=== PATIENT | female | born 1930 | race Caucasian/White ===

== ENCOUNTER 2016-12-14 21:27 | Inpatient (IN) | payer MEDICARE ==
--- NOTE | ~2016-12-14 | DS ---
Discharge Summary [facility] [address] [place]. [address] NAME: MARK CAMP : 28 STATUS : DIS IN PAT#: [id number] AGE: 86 ADM/REG DATE : 12/15/16 MR#: [id number] REPORT SERV DATE: 12/20/16 DICTATED BY: MANJULA KUMARI DATE: 12/19/16 REPORT STATUS : Draft TRANSCRIBED BY: MODL DATE: 12/19/16 ADMISSION DATE: 12/15/2016 DISCHARGE DATE: 12/19/2016 DATE OF ADMISSION: 12/14/2016 (before midnight). DISCHARGE DIAGNOSES: 1. Right lower lobe pneumonia, probably viral. 2. Acute hypoxic respiratory failure. 3. Bronchospasm. 4. Delirium atop of chronic Alzheimer's dementia. 5. Chronic kidney disease 3, improved. 6. Hypothyroidism. 7. Deep vein thrombosis on long-term anticoagulation. 8. Atypical pain syndrome. DISCHARGE PLAN: She was transferred to [facility] for rehab. DISCHARGE MEDICATIONS: Included continuing gabapentin 300 mg 3 times a day, Synthroid 75 mcg daily, Namenda 10 mg b.i.d., Xarelto 20 mg daily, Florastor capsules twice daily, albuterol nebulizer, Colace p.r.n., milk of magnesia, calcium vitamins and vitamin D, Robitussin AC p.r.n. She will see me in the office in followup. PATIENT SUMMARY: An 86-year-old white female with dementia who had been hospitalized in November with hypoxic respiratory failure from left lower lobe pneumonia. She had made great progress since that illness and had returned to her Assisted Living Facility. The 24 hours prior to admission, she developed increasing confusion, shortness of breath, coughing and fever up to 100.5. The rapid clinical decline and hypoxia precipitated a trip to the emergency room for evaluation. Her had a similar illness, and there had been several other residents with fevers. LABORATORY DATA: ER admission evaluation included blood gas 7.054 on room air. Sodium 139, potassium 3.7, BUN 19, creatinine 1.37, lactate was normal. Troponin was normal. BNP was normal. Liver functions normal. White count was 8800, hemoglobin 15.7, hematocrit 46.9. At discharge, white count was 7200, hemoglobin 40.3, sodium 144, potassium 3.8, BUN 28, creatinine 1.08. Flu swab was negative. Blood cultures were sterile. Chest x-ray portable suggested some basilar atelectasis. Followup chest x-ray, the ensuing days, showed some improvement in the right lower lobe. HOSPITAL COURSE: The patient was admitted with recurrent respiratory symptoms, fever, and significant clinical deterioration in her cognitive function. It was the admitting physician's impression based on the clinical examination that she had a right lower lobe pneumonia. She was cultured, given bronchodilators and started on Levaquin adjusted to her Discharge Summary [address] [address] NAME: MARK CAMP : 28 STATUS : DIS IN PAT#: [id number] AGE: 86 ADM/REG DATE : 12/15/16 MR#: [id number] REPORT SERV DATE: 12/20/16 DICTATED BY: MANJULA KUMARI DATE: 12/19/16 REPORT STATUS : Draft TRANSCRIBED BY: KATARINA DATE: 12/19/16 renal function. As by previous admission, she developed some bronchospasm and was given steroids and bronchodilators. She has no history of smoking, is not known to have COPD. Fever resolved, and oxygenation improved. Her clinical recovery was similar to prior expectations and experience. She was evaluated for the possibility of aspiration and had a swallowing study which showed direct aspiration but some slow transient period. It was felt that some simple aspiration precautions would be beneficial. Her delirium cleared, and she returned to her baseline dementia. Her renal function improved. She was more mobile and functioning but given her previous circumstances, it was felt that another short stay at [facility] would be appropriate to get her back to speed and return her to her assisted living facility. She was discharged for outpatient followup. BROOKE/KATARINA Manjula Kumari M.D. / [id number] CC: Manjula Kumari M.D.
[2016-12-14 21:27] LABS: BASOPHILS 0.3 %; BASOPHILS ABSOLUTE 0.03 10/3/uL (0.0-0.16); EOSINOPHILS 2.3 %; ER CBC TAT 0 Hrs 09 Mins; HEMOGLOBIN 15.7 g/dL (12.0-16.0); IMMATURE GRANULOCYTES 0.7 %; IMMATURE GRANULOCYTES ABSOLUTE 0.06 10/3/uL (0.0-0.11); LYMPHOCYTES 45.5 %; LYMPHOCYTES ABSOLUTE 3.99 10/3/uL (0.67-4.30); MEAN CORPUS HGB CONC 33.5 g/dL (32.0-36.0); MEAN CORPUSCULAR HEMOGLOB 31.2 pg (26.0-34.0); MEAN CORPUSCULAR VOLUME 93.2 fL (80-100); MEAN PLATELET VOLUME 11.1 fL (9.2-13.0); MONOCYTES 9.4 %; MONOCYTES ABSOLUTE 0.82 10/3/uL (0.21-1.20); NEUTROPHILS 41.8 %; NEUTROPHILS ABSOLUTE 3.67 10/3/uL (2.02-8.40); PLATELET COUNT 166 10/3/uL (150-400); RBC DISTRIBUTION WIDTH 16.4 % (12.0-16.0); RED CELL COUNT 5.03 10/6/uL (4.0-5.6); WHITE BLOOD CELLS 8.8 10/3/uL (4.5-10.5)
[~2016-12-14 21:27] MED LIST: CALTRAT600 PO; CENTRUM PO; LEVAQUIN750 MG PO; NAMENXR28 PO; SYN075 PO; T PO; VITAMIN D1000 UNI1 PO; XARELTO20 MG PO
[2016-12-14 21:31] LABS: HEMATOCRIT 46.9 % (36.0-48.0); MANUAL DIFF NO %
[2016-12-14 21:41] LABS: CALCIUM, SERUM 9.4 MG/DL (8.5-10.4); CHLORIDE, SERUM 102 MMOL/L (96-112); CO2 (CARBON DIOXIDE) 26 MMOL/L (24-34); CREATININE 1.37 MG/DL (0.55-1.02); GFR AFRICAN AMERICAN 40 ML/MIN (>=60); GFR NON AFRICAN AMERICAN 35 ML/MIN (>=60); GLUCOSE, SERUM 121 MG/DL (60-99); POTASSIUM, SERUM 3.7 MMOL/L (3.5-5.3); SGOT(AST) 18 U/L (5-40); SGPT(ALT) 35 U/L (5-65); SODIUM, SERUM 139 MMOL/L (135-148); TOTAL BILIRUBIN 0.5 MG/DL (0-1.2); TOTAL PROTEIN 8.2 G/DL (6.0-8.5); TROPONIN I <0.02 NG/ML (<0.05)
[2016-12-14 21:45] LABS: A/G RATIO 0.9 (0.7-1.9); ALBUMIN 3.8 G/DL (3.5-5.0); ALKALINE PHOSPHATASE 103 U/L (45-117); BUN (BLOOD UREA NITROGEN) 19 MG/DL (6-23); GLOBULIN 4.4 G/DL (2.5-4.1)
[2016-12-14 22:53] LABS: BE (BASE EXCESS) -1.5 MEQ/L (0 +/- 2.5); CARBOXYHEMOGLOBIN 1.3 % (0-3); HCO3 (ACTUAL BICARBONATE) 20.2 MEQ/L (23-27); HEMOBLOGIN CONTENT 14.8 G/DL (12-16); INSTRUMENT SERIAL # 8087; METHEMOGLOBIN 0.2 % (0-3); O2 CONTENT 18.4 VOL% (18-24); OPERATOR ID 17537; PCO2 (CO2 TENSION) 27 MMHG (35-45); PO2 (O2 TENSION) 54 MMHG (79-93); SAMPLE Arterial; pH 7.49 (7.37-7.43)
[2016-12-14] MEDS ORDERED: NEUR300 PO (23:49)
[2016-12-14] MEDS ORDERED: DSS PO (23:49)
[2016-12-14] MEDS ORDERED: MULTIVIT/MIN PO (23:50)
[2016-12-14] MEDS ORDERED: NAMENDA10 MG PO (23:50)
[2016-12-14] MEDS ORDERED: VITAMIN D31000 UNIT PO (23:50)
[2016-12-14] MEDS ORDERED: CALTRAT600 PO (23:50)
[2016-12-14] MEDS ORDERED: SYN075 PO (23:50)
[2016-12-14] MEDS ORDERED: ULTRAM50 PO (23:51)
[2016-12-14] MEDS ORDERED: XARELTO20 MG PO (23:51)
[2016-12-14] MEDS ORDERED: VENTOLIN HFA INH (23:51)
[2016-12-14] MEDS ORDERED: T PO (23:51)
[2016-12-14 23:59] LABS: INFLUENZA A SCREEN NEGATIVE (NEGATIVE); INFLUENZA B SCREEN NEGATIVE (NEGATIVE)
[2016-12-15 03:41] LABS: ASCORBIC ACID (UR NOT ORDER) 40 (NEG); BILIRUBIN, URINE NEGATIVE (NEG); KETONE, URINE NEGATIVE (NEG); LEUKOCYTE ESTERASE(NOT OR NEG (NEG); WBC (NOT ORDERED) (RFLEX) 1 (0-5)
[2016-12-15 08:09] LABS: HEMOGLOBIN 13.5 g/dL (12.0-16.0); MEAN CORPUSCULAR VOLUME 93.8 fL (80-100); MEAN PLATELET VOLUME 10.7 fL (9.2-13.0); PLATELET COUNT 154 10/3/uL (150-400); RBC DISTRIBUTION WIDTH 16.4 % (12.0-16.0); RED CELL COUNT 4.36 10/6/uL (4.0-5.6)
[2016-12-15 08:14] LABS: HEMATOCRIT 40.9 % (36.0-48.0); WHITE BLOOD CELLS 4.1 10/3/uL (4.5-10.5)
[2016-12-15 08:15] LABS: MANUAL DIFF YES %
[2016-12-15 08:24] LABS: BUN (BLOOD UREA NITROGEN) 18 MG/DL (6-23); CALCIUM, SERUM 8.6 MG/DL (8.5-10.4); CHLORIDE, SERUM 104 MMOL/L (96-112); CO2 (CARBON DIOXIDE) 23 MMOL/L (24-34); GFR AFRICAN AMERICAN 39 ML/MIN (>=60); GFR NON AFRICAN AMERICAN 34 ML/MIN (>=60); GLUCOSE, SERUM 144 MG/DL (60-99); POTASSIUM, SERUM 3.9 MMOL/L (3.5-5.3); SODIUM, SERUM 140 MMOL/L (135-148)
[2016-12-15 08:44] LABS: PROCALCITONIN < 0.05 ng/mL (<0.5)
[2016-12-15 08:58] LABS: BAND NEUTROPHILS 17 %; BASOPHILS 1 %; BASOPHILS ABSOLUTE (CALC) 0.04 10/3/uL (0.0-0.16); IMMATURE GRANS ABSOLUTE (CALC) 0.04 10/3/uL (0.0-0.11); LYMPHOCYTES 14 %; LYMPHOCYTES ABSOLUTE (CALC) 0.57 10/3/uL (0.67-4.30); METAMYELOCYTES 1 %; MONOCYTES 12 %; MONOCYTES ABSOLUTE (CALC) 0.49 10/3/uL (0.21-1.20); NEUTROPHILS ABSOLUTE (CALC) 2.95 10/3/uL (2.02-8.40); PLATELET ESTIMATE ADQ (ADEQUATE); SEGMENTED NEUTROPHIL (0) 55 %; TOTAL NUCLEATED CELLS 100
[2016-12-15 08:59] LABS: RBC MORPHOLOGY NORM (NORMAL)
[2016-12-16 05:55] LABS: CHLORIDE, SERUM 107 MMOL/L (96-112); CO2 (CARBON DIOXIDE) 23 MMOL/L (24-34); CREATININE 1.25 MG/DL (0.55-1.02); GFR AFRICAN AMERICAN 45 ML/MIN (>=60); GFR NON AFRICAN AMERICAN 39 ML/MIN (>=60); SODIUM, SERUM 139 MMOL/L (135-148)
[2016-12-16 05:59] LABS: BUN (BLOOD UREA NITROGEN) 12 MG/DL (6-23); GLUCOSE, SERUM 177 MG/DL (60-99); POTASSIUM, SERUM 4.3 MMOL/L (3.5-5.3)
[2016-12-16 06:00] LABS: HEMATOCRIT 40.1 % (36.0-48.0); HEMOGLOBIN 13.8 g/dL (12.0-16.0); MEAN CORPUS HGB CONC 34.4 g/dL (32.0-36.0); MEAN CORPUSCULAR HEMOGLOB 32.2 pg (26.0-34.0); MEAN CORPUSCULAR VOLUME 93.5 fL (80-100); MEAN PLATELET VOLUME 11.1 fL (9.2-13.0); PLATELET COUNT 197 10/3/uL (150-400); RBC DISTRIBUTION WIDTH 16.9 % (12.0-16.0); RED CELL COUNT 4.29 10/6/uL (4.0-5.6); WHITE BLOOD CELLS 3.1 10/3/uL (4.5-10.5)
[2016-12-16 06:02] LABS: MANUAL DIFF YES %
[2016-12-16 07:33] LABS: ANISOCYTOSIS 1+ (5-10/OIF) (0-5/OIF); BAND NEUTROPHILS 18 %; EOSINOPHILS 2 %; EOSINOPHILS ABSOLUTE (CALC) 0.06 10/3/uL (0.0-0.53); IMMATURE GRANS ABSOLUTE (CALC) 0.06 10/3/uL (0.0-0.11); LYMPHOCYTES 27 %; LYMPHOCYTES ABSOLUTE (CALC) 0.84 10/3/uL (0.67-4.30); METAMYELOCYTES 2 %; MONOCYTES 15 %; MONOCYTES ABSOLUTE (CALC) 0.47 10/3/uL (0.21-1.20); NEUTROPHILS ABSOLUTE (CALC) 1.67 10/3/uL (2.02-8.40); PLATELET ESTIMATE ADQ (ADEQUATE); SEGMENTED NEUTROPHIL (0) 36 %; TOTAL NUCLEATED CELLS 100
[2016-12-17 04:34] LABS: BASOPHILS 0 %; EOSINOPHILS 0 %; HEMOGLOBIN 13.3 g/dL (12.0-16.0); IMMATURE GRANULOCYTES 0.2 %; IMMATURE GRANULOCYTES ABSOLUTE 0.01 10/3/uL (0.0-0.11); LYMPHOCYTES 10.2 %; LYMPHOCYTES ABSOLUTE 0.47 10/3/uL (0.67-4.30); MANUAL DIFF NO %; MEAN CORPUS HGB CONC 32.4 g/dL (32.0-36.0); MEAN CORPUSCULAR HEMOGLOB 30.7 pg (26.0-34.0); MEAN CORPUSCULAR VOLUME 94.7 fL (80-100); MEAN PLATELET VOLUME 10.6 fL (9.2-13.0); MONOCYTES 1.7 %; MONOCYTES ABSOLUTE 0.08 10/3/uL (0.21-1.20); NEUTROPHILS 87.9 %; NEUTROPHILS ABSOLUTE 4.07 10/3/uL (2.02-8.40); PLATELET COUNT 156 10/3/uL (150-400); RBC DISTRIBUTION WIDTH 15.9 % (12.0-16.0); RED CELL COUNT 4.33 10/6/uL (4.0-5.6); WHITE BLOOD CELLS 4.6 10/3/uL (4.5-10.5)
[2016-12-17 04:46] LABS: BUN (BLOOD UREA NITROGEN) 14 MG/DL (6-23); CALCIUM, SERUM 8.2 MG/DL (8.5-10.4); CHLORIDE, SERUM 106 MMOL/L (96-112); CO2 (CARBON DIOXIDE) 23 MMOL/L (24-34); CREATININE 1.22 MG/DL (0.55-1.02); GFR AFRICAN AMERICAN 46 ML/MIN (>=60); GFR NON AFRICAN AMERICAN 40 ML/MIN (>=60); GLUCOSE, SERUM 188 MG/DL (60-99); POTASSIUM, SERUM 4.2 MMOL/L (3.5-5.3); SODIUM, SERUM 142 MMOL/L (135-148)
[2016-12-19 06:51] LABS: BUN (BLOOD UREA NITROGEN) 28 MG/DL (6-23); CALCIUM, SERUM 8.5 MG/DL (8.5-10.4); CHLORIDE, SERUM 108 MMOL/L (96-112); CO2 (CARBON DIOXIDE) 25 MMOL/L (24-34); CREATININE 1.08 MG/DL (0.55-1.02); GFR AFRICAN AMERICAN 53 ML/MIN (>=60); GFR NON AFRICAN AMERICAN 46 ML/MIN (>=60); GLUCOSE, SERUM 95 MG/DL (60-99); POTASSIUM, SERUM 3.8 MMOL/L (3.5-5.3); SODIUM, SERUM 144 MMOL/L (135-148)
[2016-12-19 06:54] LABS: HEMATOCRIT 40.3 % (36.0-48.0); HEMOGLOBIN 13.3 g/dL (12.0-16.0); MEAN CORPUSCULAR HEMOGLOB 31.1 pg (26.0-34.0); MEAN CORPUSCULAR VOLUME 94.2 fL (80-100); MEAN PLATELET VOLUME 11.3 fL (9.2-13.0); PLATELET COUNT 135 10/3/uL (150-400); RBC DISTRIBUTION WIDTH 16.5 % (12.0-16.0); RED CELL COUNT 4.28 10/6/uL (4.0-5.6)
[2016-12-19 06:55] LABS: MANUAL DIFF YES %; WHITE BLOOD CELLS 7.2 10/3/uL (4.5-10.5)
[2016-12-19 07:17] LABS: LYMPHOCYTES 18 %; MONOCYTES 3 %; MONOCYTES ABSOLUTE (CALC) 0.22 10/3/uL (0.21-1.20); NEUTROPHILS ABSOLUTE (CALC) 5.69 10/3/uL (2.02-8.40); PLATELET ESTIMATE SLT DEC (ADEQUATE); RBC MORPHOLOGY NORM (NORMAL); SEGMENTED NEUTROPHIL (0) 79 %; TOTAL NUCLEATED CELLS 100
== END 2016-12-19 11:37 | DRG 193 ==
LOC: ER 21:27 → 7NO 23:50
PROVIDERS: Emergency Medicine; Internal Medicine
DX: J12.9 Viral pneumonia, unspecified (principal); J96.01 Acute respiratory failure with hypoxia; F05 Delirium due to known physiological condition; G30.9 Alzheimer's disease, unspecified; F02.80 Dementia in other diseases classified elsewhere, unspecified severity, without behavioral disturbance, psychotic disturbance, mood disturbance, and anxiety; N18.3 Chronic kidney disease, stage 3 (moderate); I12.9 Hypertensive chronic kidney disease with stage 1 through stage 4 chronic kidney disease, or unspecified chronic kidney disease; E03.9 Hypothyroidism, unspecified; Z86.718 Personal history of other venous thrombosis and embolism; Z79.01 Long term (current) use of anticoagulants; J98.01 Acute bronchospasm; G89.4 Chronic pain syndrome
CPT/HCPCS: 36600; 71010; 71020; 74230; 80048; 80053; 81001; 82805; 83605; 83735; 83880; 84145; 84484; 85025; 87040; 87449; 87804; 92610-GN; 92611-GN; 93005; 94640; 97110-GP; 97116-GP; 97162-GP; 99285; A9270-GY; G8978-CK-GP; G8979-CJ-GP; G8996-CI-GN; G8996-CJ-GN; G8997-CI-GN; G8997-CJ-GN; G8998-CI-GN; G8998-CJ-GN; J0456; J1956; J2930